=== PATIENT | female | born 1980 | race Caucasian/White ===

== ENCOUNTER 2018-02-21 14:08 | Emergency (ER) | payer OTHER ==
[~2018-02-21] VITALS: Ht 160 cm; Wt 74.4 kg
[~2018-02-21 14:08] MED LIST: FLO4 PO; KETOROLAC TROME10 MG PO; LAC PO; LEVAQUIN750 MG PO
[2018-02-21 14:16] VITALS: Ht 160 cm; Wt 74.4 kg
[2018-02-21 14:56] VITALS: BP 120/80
== END 2018-02-21 14:56 | disposition home or self-care (01) ==
LOC: ED 14:08
DX: S01.112A Laceration without foreign body of left eyelid and periocular area, initial encounter (principal); W22.8XXA Striking against or struck by other objects, initial encounter; Y93.89 Activity, other specified; Y92.89 Other specified places as the place of occurrence of the external cause; Y99.8 Other external cause status
CPT/HCPCS: J2001

== ENCOUNTER 2018-11-11 11:51 | Emergency (ER) | payer OTHER ==
[~2018-11-11] VITALS: Ht 170.2 cm; Wt 74.8 kg
[2018-11-11 11:58] VITALS: Ht 170.2 cm; Wt 74.8 kg
[2018-11-11 16:00] VITALS: BP 121/79
== END 2018-11-11 16:01 | disposition home or self-care (01) ==
LOC: ED 11:51
DX: L03.115 Cellulitis of right lower limb (principal)
CPT/HCPCS: J2001